=== PATIENT | female | born 1945 | race Caucasian/White ===

== ENCOUNTER 2021-09-07 10:40 | Observation (INO) ==
[2021-09-07] MEDS ORDERED: SODIUM CHLORIDE 0.9% 1,000 ML IV STA (11:01)
[2021-09-07] MEDS ORDERED: ONDANSETRON 4 MG/2 ML VIAL IV STA (11:08)
[2021-09-07 12:05] LABS: Basophils % 0.3 % (0.0-0.8); Eosinophils % 0.1 % (0.00-10.9); Hematocrit 43.8 VOL% (35.7-47.0); Immature Granulocytes % 0.3 %; Immature Granulocytes Absolute 0.02 #; Lymphocytes # 1.2 10*3/uL (1.4-4.0); Lymphocytes % 18.4 % (21.3-54.2); Mean Corpuscular Volume 88.3 FL (87-102); Mean Platelet Volume 9.3 FL (9.6-12.0); Monocytes # 0.4 10*3/uL (0.11-0.8); Monocytes % 5.9 % (1.7-12.7); Platelet Count 213 T/CUMM (130-400); Red Blood Count 4.96 MC/CUMM (3.8-5.5); Red Cell Distribution Width 13.4 % (9.3-17.3); White Blood Count 6.7 T/CUMM (4-12)
[2021-09-07 12:23] LABS: Albumin 3.6 G/DL (3.4-5.0); Bilirubin,Total 0.5 MG/DL (0.20-1.00); Osmolality,Calculated 280.4 MOS/KG (273-304); Thyroid Stimulating Hormone 0.891 uIU/ml (0.358-3.74); Total Protein 6.9 G/DL (6.4-8.2)
[2021-09-07 12:39] LABS: Glucose,Urine (UA) Negative (Negative); Ketones,Urine Negative (Negative); Protein,Urine Negative (Negative); Urine Appearance Clear (Clear); Urine Color Yellow (Yellow); Urine Specific Gravity 1.015 (1.001-1.035)
[2021-09-07 12:40] LABS: Bilirubin,Urine Negative (Negative); Blood, Urine Negative (Negative); Nitrite,Urine Negative (Negative); RBC,Urine 1 /HPF (0-4); Squamous Epithelial Cell,Urine Occasional /HPF (0-10); Urine Urobilinogen 0.2 eU/dL (<2.0)
[2021-09-07 12:51] LABS: Barbiturates Screen,Urine Negative (Negative); Benzodiazepines Screen,Urine Negative (Negative); Cannabinoid Screen,Urine Negative (Negative); Opiate Screen,Urine Negative (Negative); Phencyclidine Screen,Urine Negative (Negative)
[2021-09-07] MEDS ORDERED: hydrALAZINE 20 MG/1 ML VIAL IV PRN (13:20)
[2021-09-07] MEDS ORDERED: GLUCAGON 1 MG VIAL IM PRN (13:20)
[2021-09-07] MEDS ORDERED: DEXTROSE 10% 25 GM/250 ML BAG IV PRN (13:20)
[2021-09-07] MEDS ORDERED: ONDANSETRON 4 MG/2 ML VIAL IV PRN (13:20)
[2021-09-07] MEDS ORDERED: cefTRIAXone 1,000 MG VIAL IM ONE (14:48)
[2021-09-07] MEDS: ENOXAPARIN 40 MG/0.4 ML SYRINGE SUBCUT SCH (15:08)
[2021-09-07] MEDS ORDERED: cefTRIAXone 1,000 MG in SODIUM CHLORIDE 0.9% 100 ML IV ONE (15:30)
[2021-09-07] MEDS: INSULIN LISPRO 100 UNIT/ML SUBCUT SCH ×2 (16:18→21:28)
[2021-09-07] MEDS: ACETAMINOPHEN 325 MG TABLET PO PRN (20:12)
[2021-09-08 06:23] LABS: Basophils % 0.2 % (0.0-0.8); Eosinophils # 0.1 10*3/uL (0.0-0.87); Hematocrit 41.2 VOL% (35.7-47.0); Immature Granulocytes % 0.2 %; Immature Granulocytes Absolute 0.01 #; Lymphocytes # 2.6 10*3/uL (1.4-4.0); Lymphocytes % 42.6 % (21.3-54.2); Mean Corpuscular HGB Conc 31.6 GM/DL (32-36); Mean Corpuscular Volume 89.2 FL (87-102); Mean Platelet Volume 9.6 FL (9.6-12.0); Monocytes # 0.5 10*3/uL (0.11-0.8); Monocytes % 8.7 % (1.7-12.7); Neutrophils % 47.3 % (38.7-73.9); Platelet Count 196 T/CUMM (130-400); Red Blood Count 4.62 MC/CUMM (3.8-5.5); Red Cell Distribution Width 13.5 % (9.3-17.3)
[2021-09-08 06:33] LABS: White Blood Count 6.1 T/CUMM (4-12)
[2021-09-08 06:43] LABS: Osmolality,Calculated 278.4 MOS/KG (273-304); Potassium 4.5 MMOL/L (3.5-5.1); Risk Ratio 2.16; VLDL Cholesterol 14.4 MG/DL
[2021-09-08] MEDS: PANTOPRAZOLE 40 MG TABLET PO SCH (09:13)
[2021-09-08] MEDS: INSULIN LISPRO 100 UNIT/ML SUBCUT SCH ×4 (09:14→22:46)
[2021-09-08] MEDS: ACETAMINOPHEN 325 MG TABLET PO PRN ×2 (11:01→19:21)
[2021-09-08] MEDS: ASPIRIN EC 325 MG TABLET PO SCH (11:56)
[2021-09-08] MEDS: ENOXAPARIN 40 MG/0.4 ML SYRINGE SUBCUT SCH (17:12)
[2021-09-09] MEDS: ACETAMINOPHEN 325 MG TABLET PO PRN (05:51)
[2021-09-09 06:25] LABS: Basophils % 0.2 % (0.0-0.8); Eosinophils # 0.1 10*3/uL (0.0-0.87); Eosinophils % 2.1 % (0.00-10.9); Hematocrit 43.2 VOL% (35.7-47.0); Hemoglobin 13.5 GM/DL (12.0-16.0); Immature Granulocytes % 0.2 %; Immature Granulocytes Absolute 0.01 #; Lymphocytes % 40.8 % (21.3-54.2); Mean Corpuscular HGB Conc 31.3 GM/DL (32-36); Mean Platelet Volume 9.6 FL (9.6-12.0); Monocytes # 0.4 10*3/uL (0.11-0.8); Monocytes % 8.5 % (1.7-12.7); Neutrophils % 48.2 % (38.7-73.9); Platelet Count 204 T/CUMM (130-400); Red Cell Distribution Width 13.5 % (9.3-17.3); White Blood Count 4.8 T/CUMM (4-12)
[2021-09-09] MEDS ORDERED: THYROID 60 MG TABLET PO SCH (06:30)
[2021-09-09 06:50] LABS: Calcium 9.2 MG/DL (8.5-10.1); Potassium 3.6 MMOL/L (3.5-5.1)
[2021-09-09 06:53] LABS: Osmolality,Calculated 278.4 MOS/KG (273-304)
[2021-09-09] MEDS: INSULIN LISPRO 100 UNIT/ML SUBCUT SCH (07:43)
[2021-09-09 07:54] VITALS: BP 121/58
[2021-09-09] MEDS ORDERED: MAGNESIUM OXIDE 400 MG TABLET PO SCH (09:00)
[2021-09-09] MEDS ORDERED: [UNRECOGNIZED DRUG - OTHER] PO SCH (09:00)
[2021-09-09] MEDS ORDERED: CHOLECALCIFEROL 5,000 UNIT TABLET PO SCH (09:00)
[2021-09-09] MEDS ORDERED: ATORVASTATIN 10 MG TABLET PO SCH (09:00)
[2021-09-09] MEDS: ASPIRIN EC 325 MG TABLET PO SCH (09:14)
[2021-09-09] MEDS: PANTOPRAZOLE 40 MG TABLET PO SCH (09:14)
[2021-09-09] MEDS ORDERED: FLUTICASONE 50 MCG NASAL SPRAY 16 GM BOTTLE BOTH NARES SCH (21:00)
== END 2021-09-09 11:15 | disposition home or self-care (01) ==
LOC: EDBD → EDUNIT# → N.EDINP 10:40 → N.ED 10:40 → SUATTDRO 13:20 → N.3E 14:28
PROVIDERS: ADMIT Internal Medicine; ATTEND Internal Medicine